=== PATIENT | male | born 1980 | race Caucasian/White ===

== ENCOUNTER 2018-09-07 13:53 | Emergency (ER) | payer MEDICAID ==
[2018-09-07] MEDS: ACETAMINOPHEN 325 MG TAB PO (15:38)
[2018-09-07] MEDS: IBUPROFEN 600 MG TAB PO (15:38)
== END 2018-09-07 16:13 | disposition home or self-care (01) ==
LOC: FTE 13:53
DX: J03.90 Acute tonsillitis, unspecified (principal)
CPT/HCPCS: 99283; Z7502